=== PATIENT | male | born 1990 | race Caucasian/White ===

== ENCOUNTER 2018-11-15 22:03 | Emergency (ER) | payer SELFPAY ==
[~2018-11-15] VITALS: Ht 172.7 cm; Wt 83.9 kg
[2018-11-15 22:14] VITALS: Ht 172.7 cm; Wt 83.9 kg
[2018-11-16 00:03] VITALS: BP 116/89
== END 2018-11-16 00:03 | disposition home or self-care (01) ==
LOC: ED 22:03
DX: F41.0 Panic disorder [episodic paroxysmal anxiety] (principal); F41.1 Generalized anxiety disorder